=== PATIENT | male | born 1970 | race Caucasian/White ===

== ENCOUNTER 2017-11-19 07:24 | Outpatient (CLI) | payer SELFPAY | END 2017-11-19 07:25 | disposition critical access hospital (66) | LOC: EMS 07:24 | PROVIDERS: ATTEND Surgery | DX: R07.9 Chest pain, unspecified (principal) | CPT/HCPCS: A0425; A0427 ==

== ENCOUNTER 2017-11-19 07:41 | Emergency (ER) | payer SELFPAY ==
[2017-11-19] MEDS ORDERED: IOPAMIDOL-300 100 ML VIAL IVP ONE (07:42)
--- NOTE | 2017-11-19 07:51 | ED Physician Documentation ---
History of Present Illness - Stated complaint Stated Complaint: CP - Additonal information Additional information: hx from pt 47 male hx spont L pneumo this Am at work developed abrupt sharp L pleuritic chest pain no fever cough no leg swelling working here locally, from [place], [facility] fhx CAD men in 50s Review of Systems Constitutional: denies: Fever, Chills Cardiac: reports: Chest pain / pressure Respiratory: reports: Dyspnea. denies: Cough GI: denies: Abdominal Pain Musculoskeletal: denies: Extremity swelling Neurologic: denies: Generalized weakness PD PAST MEDICAL HISTORY - Present Medications Home Medications: Ambulatory Orders Medication Instructions Recorded Confirmed No Known Home Medications [No 11/19/17 11/19/17 Known Home Medications] - Allergies Allergies/Adverse Reactions: Allergies Allergy/AdvReac Type Severity Reaction Status Date / Time No Known Drug Allergies Allergy Verified 11/19/17 07:49 PD ED PE NORMAL - Vitals Vital signs reviewed: Yes - General General: Alert and oriented X 3 - HEENT HEENT: PERRL - Neck Neck: Supple, no meningeal sign - Cardiac Cardiac: RRR - Respiratory Respiratory: No respiratory distress, Clear bilaterally - Abdomen Abdomen: Soft, Non tender - Extremities Extremities: No edema, No calf tenderness / cord - Neuro Neuro: Alert and oriented X 3 Results - Vitals Vitals: Vital Signs - 24 hr 11/19/17 11/19/17 11/19/17 07:43 09:46 12:04 Temperature 36.3 C L 36.7 C 36.5 C Heart Rate 70 60 62 Respiratory 16 16 15 Rate Blood Pressure 129/86 H 128/88 H 118/83 H O2 Saturation 97 99 99 Oxygen O2 Source Room air - EKG (time done) 0757 Rate: Rate (enter#) (63) Rhythm: NSR [place]: Normal Intervals: Normal [place] QRS: Normal Ischemia: Normal ST segments - Labs Labs: Laboratory Tests 11/19/17 11/19/17 11/19/17 08:09 08:09 08:09 WBC 6.5 RBC 5.28 Hgb 15.3 Hct 45.2 MCV 85.5 MCH 29.0 MCHC 34.0 RDW 13.1 Plt Count 198 MPV 9.0 Neut # 4.6 Lymph # 1.3 L [place] # 0.5 Eos # 0.1 Baso # 0.0 Absolute Nucleated RBC 0.00 Nucleated RBC % 0.1 Sodium 134 L Potassium 4.3 Chloride 102 Carbon Dioxide 24 Anion Gap 8.0 BUN 25 H Creatinine 1.0 Estimated GFR (MDRD) 80 L Glucose 115 H Calcium 8.9 Troponin I < 0.04 11/19/17 11:32 WBC RBC Hgb Hct MCV MCH MCHC RDW Plt Count MPV Neut # Lymph # [place] # Eos # Baso # Absolute Nucleated RBC Nucleated RBC % Sodium Potassium Chloride Carbon Dioxide Anion Gap BUN Creatinine Estimated GFR (MDRD) Glucose Calcium Troponin I < 0.04 - Rads (name of study) CXR Radiology: See rad report (no pneumo, linear abd PAT, rec CT) CTPA Radiology: See rad report (no pneumo, PAT scarring, no PE or dissection) Departure - Departure Disposition: 01 Home, Self Care Clinical Impression: Chest pain Condition: Good Instructions: ED Chest Pain Atypical Unkn Cause Comments: You do not have another pneumothorax. The work also shows you have not had a heart attack, do not have an aneurysm or tear of your aorta, nor a blood clot in your lungs I am not surge what caused the pain but given the reassuring work up I think it is safe for you to go home for today Although your heart checked out fine today, given the family history of cardiac disease, I recommend you get a stress test
[2017-11-19 08:17] LABS: BASOPHILS % (AUTO) 0.7 %; EOSINOPHILS # (AUTO) 0.1 10^3/uL (0.0-0.7); EOSINOPHILS % (AUTO) 1.6 %; HGB - HEMOGLOBIN 15.3 g/dL (14.0-18.0); LYMPHOCYTES # (AUTO) 1.3 10^3/uL (1.5-3.5); LYMPHOCYTES % (AUTO) 19.3 %; MEAN CORPUSCULAR VOLUME 85.5 fL (80.0-94.0); MONOCYTES # (AUTO) 0.5 10^3/uL (0.0-1.0); MONOCYTES % (AUTO) 7.4 %; NEUTROPHILS # (AUTO) 4.6 10^3/uL (1.5-6.6); PLT - PLATELET COUNT 198 10^3/uL (130-450); RED BLOOD COUNT 5.28 10^6/uL (4.70-6.10); RED CELL DISTRIBUTION WIDTH 13.1 % (12.0-15.0); WHITE BLOOD COUNT 6.5 x10^3/uL (4.8-10.8)
[2017-11-19 08:22] LABS: CALCIUM 8.9 mg/dL (8.5-10.3)
--- NOTE | 2017-11-19 08:49 | XRAY Report ---
EXAM: CHEST RADIOGRAPHY EXAM DATE: 11/19/2017 08:11 AM. CLINICAL HISTORY: Pleuritic L chest pain hx penumo. COMPARISON: None available at the time of dictation.. TECHNIQUE: 2 views. FINDINGS: Lungs/Pleura: Postsurgical changes in the medial aspect of the left upper lobe with ill-defined densi ty in the region of the suture line. No focal opacities evident. No pleural effusion. No pneumothorax . Normal volumes. Mediastinum: Heart and mediastinal contours are unremarkable. Other: None. IMPRESSION: 1. No pneumothorax. 2. Postsurgical changes in the medial aspect of left upper lobe with ill-defined density projecting a long the suture line. While this may represent artifact from overlying rib shadows, a true parenchyma l lesion cannot be excluded. Correlate with prior cross-sectional imaging. If no prior cross-sectiona l imaging is available then a chest CT with contrast may be of benefit further characterize this find ing. [facility] Referring Provider Line: [phone] SITE ID: [id number]
[2017-11-19] MEDS ORDERED: IOPAMIDOL-300 100 ML VIAL ONE (09:21)
--- NOTE | 2017-11-19 10:00 | CT Report ---
EXAM: CT ANGIOGRAM CHEST EXAM DATE: 11/19/2017 09:33 AM. CLINICAL HISTORY: L CP hx pneumo abn CXR rad rec CT. COMPARISON: Chest radiographs 11/19/2017. TECHNIQUE: Routine helical imaging was performed through the chest in the pulmonary arterial phase. I V Contrast: 80ML ISOVUE 300. Reconstructions: Coronal 3-D MIP reconstructions.Sagittal and coronal. In accordance with CT protocol optimization, one or more of the following dose reduction techniques w ere utilized for this exam: automated exposure control, adjustment of mA and/or KV based on patient s ize, or use of iterative reconstructive technique. FINDINGS: Pulmonary Arteries: Diagnostic quality: Adequate through the segmental arteries. No evidence for acute or chronic pulmona ry emboli. RV/LV is within normal limits. There is no interventricular septal bowing. There is no reflux of cont rast material in the IVC. Lungs/Pleura: There is linear scarring and postsurgical change at the left lung apex. No consolidatio n, nodules, or edema. No effusions or pneumothorax. Mediastinum: Normal. No cardiac enlargement or adenopathy. Thoracic Aorta: Unremarkable. Upper Abdomen: Unremarkable. Other: There are mild degenerative disk changes throughout the thoracic spine. No acute osseous abnor mality. IMPRESSION: 1. No pulmonary emboli. No pneumothorax or pleural effusion. 2. Linear scarring and postsurgical change at the left lung apex. No parenchymal nodule or mass ident ified. [facility] Referring Provider Line: [phone] SITE ID: [id number]
--- NOTE | 2017-11-19 10:00 | CT Preliminary Report ---
Exam: CT CHEST ANGIO (PE) IMPRESSION: 1. No pulmonary emboli. No pneumothorax or pleural effusion. 2. Linear scarring and postsurgical change at the left lung apex. No parenchymal nodule or mass ident ified. [facility] SITE ID: [id number]
[2017-11-19 12:47] VITALS: BP 117/74
[2017-11-19] MEDS: IOPAMIDOL-300 100 ML VIAL IVP ONE (14:41)
== END 2017-11-19 12:48 | disposition home or self-care (01) ==
LOC: ED 07:41
DX: R07.9 Chest pain, unspecified (principal); R06.00 Dyspnea, unspecified; Z82.49 Family history of ischemic heart disease and other diseases of the circulatory system
CPT/HCPCS: 36415; 71046; 71275; 80048; 84484; 85025; 93005; 99283; 99284